=== PATIENT | female | born 1950 | race Caucasian/White ===

== ENCOUNTER 2018-12-22 09:20 | Day surgery (SDC) | payer BC ==
[~2018-12-22] VITALS: Ht 165.1 cm; Wt 119.1 kg
[~2018-12-22 09:20] MED LIST: BENADRYL25 MG PO; DIPH50 PO; Hair, Skin & N1 EACH PO; LORA10ER PO; MELA3 PO; MELATONIN5 M1 PO; METF500C PO; Metformin HCl1000 MG PO; PRAV20 PO; PRAVASTATIN SOD10 MG PO; PRED20 PO; Percocet 5-3251 EACH PO; RANI150 PO; XARELTO10 MG PO
--- NOTE | 2018-12-22 10:16 | NUR ---
12/22/18 1016 CHRISTINA JAIN 1 IV ATTMEPT BIPIN BLEW VEIN 2 IV ATTMEPT BY BIPIN SUCCESSFUL
== END 2018-12-22 11:32 | disposition home or self-care (01) ==
LOC: ORSCSDS 09:20
PROVIDERS: Internal Medicine Gastroenterology
PROC: 0DBL8ZX Excision of Transverse Colon, Via Natural or Artificial Opening Endoscopic, Diagnostic (ICD-10-PCS; principal; 2018-12-22 10:30)
PROC: 0DBK8ZX Excision of Ascending Colon, Via Natural or Artificial Opening Endoscopic, Diagnostic (ICD-10-PCS; principal; 2018-12-22 10:30)
DX: Z12.11 Encounter for screening for malignant neoplasm of colon (principal); D12.2 Benign neoplasm of ascending colon; D12.3 Benign neoplasm of transverse colon; K64.8 Other hemorrhoids; K64.4 Residual hemorrhoidal skin tags; K57.30 Diverticulosis of large intestine without perforation or abscess without bleeding; E11.9 Type 2 diabetes mellitus without complications; E78.5 Hyperlipidemia, unspecified; E66.01 Morbid (severe) obesity due to excess calories; Z68.41 Body mass index [BMI] 40.0-44.9, adult; Z79.84 Long term (current) use of oral hypoglycemic drugs; Z79.899 Other long term (current) drug therapy
CPT/HCPCS: 82947; 88305; J2704; J7120

== ENCOUNTER → 2020-05-15 | Outpatient (CLI) | payer BC ==
[2020-05-15 18:59] LABS: Microalb/Creat Ratio UR, Rand 4.694 mg/g (0.000-30.000); Microalbumin, Random Urine 6.76 mg/L (0.000-20.000)
== END | disposition home or self-care (01) ==
LOC: LAB 15:40 → LAB SHORT 15:40
PROVIDERS: Physician Assistant
DX: E11.9 Type 2 diabetes mellitus without complications (principal)
CPT/HCPCS: 82043; 82570

== ENCOUNTER 2024-10-27 17:44 | Emergency (ER) | payer OTHER, BC ==
[~2024-10-27] VITALS: Ht 165.1 cm; Wt 100.7 kg
[2024-10-27] MEDS ORDERED: Ondansetron HCl 2 MG / ML 2ML Vial IV ONE (18:50)
[2024-10-27] MEDS ORDERED: Morphine Sulfate 4 MG/1 ML Injection IV ONE (18:50)
[2024-10-27 19:11] LABS: BASOPHILS ABSOLUTE AUTO 0.05 K/mm3 (0.00-0.23); BASOPHILS PERCENT AUTO 0 % (0-2); EOSINOPHILS ABSOLUTE AUTO 0.11 K/mm3 (0.00-0.68); EOSINOPHILS PERCENT AUTO 1 % (0-6); Hematocrit 40.8 % (33.0-51.0); Hemoglobin 13.6 g/dL (11.5-16.0); IMMATURE GRAN ABSOLUTE AUTO 0.07 K/mm3 (0.00-0.10); IMMATURE GRAN PERCENT AUTO 1 % (0-1); LYMPHOCYTES ABSOLUTE AUTO 2.01 K/mm3 (0.84-5.20); LYMPHOCYTES PERCENT AUTO 16 % (21-46); MONOCYTES ABSOLUTE AUTO 0.59 K/mm3 (0.16-1.47); MONOCYTES PERCENT AUTO 5 % (4-13); Mean Corpuscular HGB 27.9 pg (26.0-34.0); Mean Corpuscular HGB Conc 33.3 g/dL (31.5-36.5); Mean Corpuscular Volume 84 fL (80-100); Mean Platelet Volume 9.7 fL (9.1-12.4); NEUTROPHILS ABSOLUTE AUTO 9.75 K/mm3 (1.96-9.15); NEUTROPHILS PERCENT AUTO 77 % (41-73); Platelet Count 216 K/mm3 (150-400); RDW Coefficient Variation 14.3 % (11.7-14.2); RDW Standard Deviation 43.6 fL (35.1-46.3); Red Blood Cell Count 4.88 M/mm3 (3.80-5.20); White Blood Cell Count 12.58 K/mm3 (4.00-11.30)
[2024-10-27 19:33] LABS: Bun/Creatinine Ratio 16.8 (12.0-20.0); Calcium, Blood 9.4 mg/dL (8.5-10.1); Creatinine, Blood 0.95 mg/dL (0.40-1.00); Potassium, Blood 4.1 mmol/L (3.5-5.5)
[2024-10-27] MEDS ORDERED: Diphth,Pertuss(Acell),Tet Vac 0.5 ML VIAL IM ONE (20:55)
[2024-10-27 21:15] VITALS: BP 156/84
== END 2024-10-27 21:13 | disposition home or self-care (01) ==
LOC: ER 17:44
PROVIDERS: Student in an Organized Health Care Education/Training Program
DX: S20.224A Contusion of middle back wall of thorax, initial encounter (principal); Z91.041 Radiographic dye allergy status; Z91.013 Allergy to seafood; Z79.899 Other long term (current) drug therapy; W01.198A Fall on same level from slipping, tripping and stumbling with subsequent striking against other object, initial encounter
CPT/HCPCS: 74177; 80048; 85025; 90715; 96374-59; 96375; 99284-25; J2270; J2405; Q9967